=== PATIENT | male | born 1995 | race Caucasian/White ===

== ENCOUNTER 2022-05-01 18:57 | Emergency (ER) | payer MEDICAID, SELFPAY ==
[2022-05-01 19:20] VITALS: BP 128/80; PULSE 86; RESP 21; TEMP 37.1; O2SAT 100; BMI 14.1
[2022-05-01 19:45] VITALS: BP 128/80; PULSE 86; RESP 21; TEMP 37.1; O2SAT 100
--- NOTE | 2022-05-01 19:51 | EXP.UTC ---
Discharge Plan Disposition Patient Disposition: Home, Self-Care Condition: Good Prescriptions Prescriptions: No Action Zyrtec 10 mg capsule 10 mg PO DAILY PRN (Reason: allergies) multivitamin [Multi-Vitamin] Tablet 1 tab PO DAILY Referrals Follow up/Referrals: Clark Greco [Primary Care Provider] - See instructions Activity Restrictions/Add. Instructions Additional Instructions/Restrictions: You were tested for today for COVID19 your test result should be back in the next 24-48 hours, you check your results on the [facility] My Health Portal Make sure to take your Vitamins Vit. C Vit D and Zinc if you can take them Clinical Impressions Clinical Impression: Encounter for laboratory testing for COVID-19 virus Discharge ED Provider: Margaret Fraire [facility] HPI General Stated complaint: covid test Mode of Arrival: Ambulatory Source of Information: Patient Limitations: No Limitations Time Seen by Provider: 05/01/22 19:51 Description of Symptoms (Recalled from Triage Doc. by RN): PATIENT NEEDING COVID TEST FOR DENTAL SURGERY HEENT Symptoms (Recalled from RN notes): No Resp Symptoms (Recalled from RN notes): No Skin Symptoms (Recalled from RN notes): No MS Symptoms (Recalled from RN notes): No Functional Status (Recalled from RN notes): WNL History of Present Illness Provider Complaint: Family states that patient is having to have COVID test for dental procedure denies exposure or any symptoms Related Data Home Medications Medication Instructions Recorded Confirmed cetirizine 10 mg capsule (Zyrtec) 10 mg PO DAILY PRN allergies 04/24/22 04/30/22 multivitamin 1 tab PO DAILY Supplement 04/30/22 04/30/22 Allergies Allergy/AdvReac Type Severity Reaction Status Date / Time gluten Allergy Verified 05/01/22 19:37 lactose Allergy Verified 04/30/22 11:17 peanut Allergy Verified 04/30/22 11:17 Sulfa (Sulfonamide Allergy Verified 05/01/22 19:37 Antibiotics) sulfamethoxazole Allergy Verified 05/01/22 19:37 [From Bactrim] trimethoprim [From Bactrim] Allergy Verified 05/01/22 19:37 Worker's Comp Is this a Worker's Comp case?: No [facility] Medical History (Updated 05/01/22 @ 19:53 by Margaret Fraire APRN) Allergies Anxiety Autism Gluten intolerance History of gastroesophageal reflux (GERD) Urinary tract infection Surgical History History of dental surgery Family History (Updated 04/30/22 @ 11:15 by Savannah Lang RN) Other No significant family history Social History (Updated 05/01/22 @ 19:36 by Laina Parker RN) Smoking Status: Never smoker alcohol intake: never current occupational status: disabled Travel in the last 8 weeks: None ROS Obtained: Yes All systems reviewed & no additional complaints except as documented and Yes Systems reviewed as appropriate & no additional complaints except as documented Eyes Eyes: Reports system reviewed and no additional complaints, except as documented and Reports as per HPI ENT Ears, Nose, Mouth, and Throat: Reports system reviewed and no additional complaints, except as documented and Reports as per HPI Cardiovascular Cardiovascular: Reports system reviewed and no additional complaints, except as documented and Reports as per HPI Respiratory Respiratory: Reports system reviewed and no additional complaints, except as documented and Reports as per HPI Physical Exam General General appearance: alert and in no apparent distress Respiratory Respiratory exam: Present normal lung sounds bilaterally; Absent respiratory distress or wheezes Cardiovascular Cardiovascular exam: Present regular rate, normal rhythm and normal heart sounds Neurological Exam Neurological exam: Present alert, oriented X3 and normal gait Medical Decision Making [place] Inquiry Pt receiving controlled substance: No [place] was queried for this patient: No Vital Signs: 05/01/22 1
== END 2022-05-01 19:55 | disposition home or self-care (01) ==
PROVIDERS: Emergency Provider Nurse Practitioner; PCP Family Medicine
DX: Z20.822 Contact with and (suspected) exposure to COVID-19 (principal)
CPT/HCPCS: 99212; C9803; G0463; U0003; U0005

== ENCOUNTER 2022-05-02 11:11 | Day surgery (SDC) | payer MEDICAID, SELFPAY ==
[2022-04-30 11:21] VITALS: BMI 15.0
[2022-05-02] VITALS (10 sets, daily range): BP systolic 92–115; BP diastolic 59–75; PULSE 73–96; RESP 16–19; TEMP 36.4–43; O2SAT 95–100
--- NOTE | 2022-05-02 12:15 | P.PN_ITS ---
[facility] Medical History Allergies Anxiety Autism Gluten intolerance History of gastroesophageal reflux (GERD) Urinary tract infection Surgical History History of dental surgery Family History Other No significant family history Social History Smoking Status: Never smoker alcohol intake: never substance use type: denies use current occupational status: disabled Travel in the last 8 weeks: None [facility] Anesthesia Checklist Patient Identification Patient Identification: Arm Band Structural Data Admitted From: Home Planned Operative Procedure/s: Dental Consent for Planned Operative Procedure(s) Verified: Yes Verified Documents: Surgical Consent and History and Physical NPO Status Verified Time NPO: 00:00 Additional verifications Anesthesia Reactions: No Hx Blood Transfusions: No Blood Transfusion Reaction: No Airway Assessment C-Spine Mobility Assessed: Yes TMJ Mobility Assessed: Yes Dentition: Poor Dentition Neurological Assessment Level of Consciousness: Awake Anesthesia Plan Anesthesia Risk discussed: Yes Anesthesia Plan: Verified ASA Class: II Anesthesia Type: General Preoperative Comments Pre-Operative Comments: Ketamine/Versed IM preoperatively to facilitate IV start
--- NOTE | 2022-05-02 15:12 | SUR.OPER ---
LATE ENTRY 1503 mom given an update
--- NOTE | 2022-05-02 15:33 | EXP.ANES.I ---
[facility] Anesthesia Record Part I Anesthesia Record I Intake, IV Amount: 400 Estimated blood loss (mL): 2 Urine output (mL): 0 Blood Products used (#): platelets Blood Pressure: 92/68 SaO2: 95 Pulse Rate: 80 Respiratory Rate: 19 Temperature: 97.6 F Patient is:: Drowsy and Oral/Nasal airway Stable to PACU at:: 15:30
--- NOTE | 2022-05-02 15:46 | HMH.ORALP ---
Operative Note Date of procedure: 05/02/22 Date of : 89 Pre-op Diagnosis:: Dental Decay Post-op diagnosis:: same Procedure performed:: The 26, M patient was transported to the [facility] OR pre operative holding room per his mother. In the holding room, an IV was started. The patient was then transported to the operating room where Dom was nasotracheal intubated. Anesthesia was induced and maintained. The patient was draped in the usual manner. 18 intraoral x-rays were taken. The throat was suctioned free of debris. One single moist throat pack was placed in the posterior oral pharynx. A complete intra-oral exam and review of the complete set of x-rays was completed. Periodontal scaling and root planing was done in all four quadrants. The patient was found to need: #4-MOD surfaces and #5-DO surfaces were packed with A2 composite material. Tooth #7 was surgically removed. Used #15 blade and periosteal elevator to lay buccal flap. Used elevators to loosen tooth. All tooth structure of extracted tooth was delivered. Closed extraction site with chromic 3.0 GUT suture. Patient tolerated procedure well. Checked occlusion and adjusted bite as needed. Estimated blood loss was 2 cc. The patient tolerated all surgical procedures well and there were no surgical complications. The throat was irrigated and suctioned free of debris. The throat pack was removed. The patient was extubated without complications and taken to the postoperative anesthetic recovery room in satisfactory condition. Surgeon:: Maame Whitmore DMD [employer] Decorator(s):: Rena Webber and Mily Liu MOTHER BABY RN:: Gi Rayo Anesthesia: GETA Estimated blood loss (mL): 2 Operative findings:: Dental decay Operative note:: Same as procedure performed. Disposition: PACU Specimens:: Tooth #7 disposed of. Complications:: None
--- NOTE | 2022-05-02 16:12 | PC.NURSE ---
1555-detailed report given to SHAE Mccabe 1600-pt transported to post op via stretcher w/thomas rails up and left in care of SHAE Mccabe with bed locked in lowest position, vss ,mother at bedside, pt stable
--- NOTE | 2022-05-03 08:09 | P.PNANES_ITS ---
[facility] Anesthesia Record Part II Anesthesia Record Part II Discharge Time: 16:00 Destination: Surgical Day Care (OP Surgery) PACU nurse assessment reviewed?: Yes Patient Condition:: Good Anesthesia Complications:: None Swallowing reflex intact?: Yes Cyanosis?: No Blood Pressure: 96/59 Pulse Rate: 91 Temperature: 97.9 F Mental Status: Alert & Oriented Pain level:: 0 Nausea and/or vomitting:: Nauseated and Vomiting Intake, IV Amount: 0
[2022-05-03 08:11] VITALS: BP 96/59; PULSE 91; TEMP 36.6
== END 2022-05-02 16:31 | disposition home or self-care (01) ==
PROVIDERS: PCP Family Medicine; Visit Provider Dentist General Practice
PROC: (CPT 41899; principal; 2022-05-02 12:30)
DX: K02.9 Dental caries, unspecified (principal); F84.0 Autistic disorder
CPT/HCPCS: 41899; D4341; D7210; D2391; D2392; J0330; J2405